=== PATIENT | male | born 1970 | race Hispanic/Latino ===

== ENCOUNTER → 2023-05-11 08:54 | Outpatient (REF) | payer OTHER, SELFPAY ==
[2023-05-11 11:49] LABS: Glycohemoglobin (HgbA1c) 7.5 % (4.0-5.6)
== END ==
LOC: REG 08:54
PROVIDERS: ATTENDING PHYSICIAN Internal Medicine
DX: E11.9 Type 2 diabetes mellitus without complications (principal)
CPT/HCPCS: 36415; 83036

== ENCOUNTER → 2023-12-21 09:20 | Outpatient (REF) | payer OTHER, SELFPAY ==
[2023-12-21 10:41] LABS: Glycohemoglobin (HgbA1c) 7.6 % (4.0-5.6)
== END ==
LOC: CLINIC 09:20
PROVIDERS: ATTENDING PHYSICIAN Internal Medicine; FAMILY PHYSICIAN Nurse Practitioner Adult Health
DX: E11.9 Type 2 diabetes mellitus without complications (principal)
CPT/HCPCS: 36415; 83036

== ENCOUNTER → 2024-04-02 08:01 | Outpatient (REF) | payer OTHER, SELFPAY ==
[2024-04-02 09:13] LABS: % Basophils 0.6 % (0-2); % Eosinophils 4.5 % (0-6); % Immature Granulocytes 0.4 % (0-0.5); % Lymphocytes 35.8 % (20.5-51.1); % Monocytes 7.5 % (1.7-9.3); % Neutrophils 51.2 % (42.2-75.2); Absolute Basophils 0.1 10^3/uL (0-0.2); Absolute Eosinophils 0.4 10^3/uL (0-0.7); Absolute Lymphocytes 3.4 10^3/uL (1.2-3.4); Absolute Monocytes 0.7 10^3/uL (0.1-0.6); Absolute Neutrophils 4.8 10^3/uL (1.4-6.5); Hemoglobin 16.7 g/dL (13.0-18.0); Mean Corp Hgb Conc. 35.5 g/dL (33.0-37.0); Mean Corpuscular Volume 87.4 fL (80.0-94.0); Mean Platelet Volume 10.4 fL (7.4-10.4); Nucleated Red Blood Cells % 0 % (-); Platelet Count 227 10^3/uL (130-400); Red Blood Cell Count 5.38 10^6/uL (4.70-6.10); Red Cell Dist. Width 12.3 % (11.5-14.5); Reticulocyte Count 1.4 % (0.4-2.8); White Blood Cell Count 9.4 10^3/uL (4.8-10.8)
[2024-04-02 09:16] LABS: Urine Albumin 2+ (Neg - Trace); Urine Bilirubin Negative (Negative); Urine Character Clear (Clear); Urine Color Yellow; Urine Glucose 2+ (Negative); Urine Ketone Negative (Negative); Urine Leukocyte Negative (Negative); Urine Nitrite Negative (Negative); Urine Occult Blood Negative (Negative); Urine Urobilinogen Negative (Neg - 1+)
[2024-04-02 09:45] LABS: ALT (SGPT) 50 U/L (0-50); AST (SGOT) 36 U/L (17-59); Albumin 5.2 g/dl (3.5-5.0); Alkaline Phosphatase 102 U/L (38-126); Blood Urea Nitrogen 14 mg/dl (9-20); Calcium 9.2 mg/dl (8.4-10.2); Carbon Dioxide 22 mmol/L (22-30); Chloride 102 mmol/L (98-107); Glucose 190 mg/dl (70-99); HDL Cholesterol 33 mg/dl; LDL Cholesterol, Calculated 91 mg/dl; Potassium 4.4 mmol/L (3.5-5.1); Sodium 139 mmol/L (135-145); Total Bilirubin 0.6 mg/dl (0.2-1.3); Total Cholesterol 164 mg/dl (50-199); Total Protein 8.4 g/dl (6.3-8.2); Triglyceride 200 mg/dl (10-149); Very Low Density Lipoprotein 40 mg/dl (0-30); eGFR > 60.00
[2024-04-02 10:06] LABS: PSA, Total - Screen 0.71 ng/ml (0.0-4.0)
[2024-04-02 10:11] LABS: Urine Mucus Few; Urine Squamous Cell 0-2 /LPF (Few)
[2024-04-02 10:12] LABS: Urine Red Blood Cell 0-2 /HPF (0-2); Urine White Cell 0-2 /HPF (0-5)
[2024-04-02 10:15] LABS: Microalbumin, Random Urine 15.8 mg/dl (0.6-1.7); Microalbumin/creatinine Ratio 96.2 mg/g
[2024-04-02 12:50] LABS: Glycohemoglobin (HgbA1c) 10.5 % (4.0-5.6)
== END ==
LOC: CLINIC 08:01
PROVIDERS: ATTENDING PHYSICIAN Internal Medicine
DX: E11.9 Type 2 diabetes mellitus without complications (principal)
CPT/HCPCS: 36415; 80053; 80061; 81003; 81015; 82043; 82570; 83036; 85025; 85045; G0103

== ENCOUNTER 2024-10-09 17:18 | Emergency (ER) | payer OTHER, SELFPAY ==
[2024-10-09 17:24] VITALS: BP 100/62
[2024-10-09 17:41] LABS: Hematocrit 36.0 % (39.0-52.0); Hemoglobin 12.2 g/dL (13.0-18.0); Mean Corp Hgb Conc. 33.9 g/dL (33.0-37.0); Mean Corpuscular Volume 89.8 fL (80.0-94.0); Nucleated Red Blood Cells % 0 % (-); Platelet Count 208 10^3/uL (130-400); Red Cell Dist. Width 13.5 % (11.5-14.5)
[2024-10-09 17:51] LABS: APTT 34.7 Sec (23.4-35.0)
[2024-10-09 18:04] LABS: ALT (SGPT) 14 U/L (0-50); AST (SGOT) 18 U/L (17-59); Albumin 4.6 g/dl (3.5-5.0); Alkaline Phosphatase 73 U/L (38-126); Blood Urea Nitrogen 30 mg/dl (9-20); Calcium 10.1 mg/dl (8.4-10.2); Carbon Dioxide 17 mmol/L (22-30); Chloride 107 mmol/L (98-107); Glucose 93 mg/dl (70-99); Potassium 5.0 mmol/L (3.5-5.1); Sodium 136 mmol/L (135-145); Total Protein 8.0 g/dl (6.3-8.2); eGFR > 60.00
[2024-10-09 18:05] LABS: Troponin I < 0.012 ng/ml
--- NOTE | 2024-10-09 18:27 | ED.GENMED ---
History of Present Illness
General
Chief Complaint: Weakness
Source: patient
Exam Limitations: none
Time Seen by Provider: 10/09/24 17:50
Nursing documentation reviewed up to this point in time: agreed with
History of Present Illness
History of Present Illness:
Patient to ED iwth complaint of generalized weaknss, BLE pain. He was admitted to a hospital in [place] while on vacation. Diagnosed with Legonella pneumonia. Intubated. He was discharged from the hospital on Thursday, returned home . Brought
to ED by family for eval of weaknss. Denies fever/chills. No SOB, cp/pressure, cough.
Past History
Past History
ED Past Medical History: HTN, Hypercholesterolemia and NIDDM (diet controlled)
ED Past Surgical History: None
Social History
Tobacco: Smoker (1 ppd)
Alcohol: None
Personal:
Living: with family
Employment: Employed
Family History
Family History: Negative CAD
Review of Systems
Review of Systems
Allergies reviewed?: Yes
All Other Systems: ROS reviewed and negative except as documented in HPI and ROS
Constitutional: Reports fatigue
EENT: Reports no symptoms
Respiratory: Reports no symptoms
Cardiac: Reports no symptoms
ABD/GI: Reports no symptoms
: Reports no symptoms
Musculoskeletal: Reports other (Bilateral lower leg pain)
Skin: Reports no symptoms
Neurological: Reports weakness
Psychiatric: Reports no symptoms
Phy Exam
General Physical Exam
General Presentation: mild distress
General age: appears stated age
General Skin: warm and dry
General Habitus: normal
General Mental: alert
General Hydration: appears well hydrated
Cardiovascular Exam
Cardiovascular Exam: regular rate/rhythm and no edema
Pulmonary Exam
Pulmonary Exam: lungs clear, no respiratory distress, no rales, chest non tender, no crackles, no rhonchi, no stridor, no wheezing and no cough
Gastrointestinal Exam
Gastrointestinal Exam: non tender and soft
Neurological Exam
Neurological Exam: alert, oriented x3, CN II-XII intact, no motor deficits, no sensory deficits and speech normal
Musculoskeletal Exam
Musculoskeletal Exam: full ROM and neuro vasc intact
Skin Exam
Skin Exam: normal color, warm/dry and no rash
Psychiatric Exam
Psychiatric Exam: normal mood/affect
Course
Orders/Labs/Results
Orders:
Orders
10/09/24 17:28
CR Chest - 2 Views Urgent
Comment:
Reason For Exam: weakness
10/09/24 17:29
ECG [Electrocardiogram (*1)] Urgent
Reason for Study: Fatigue / Weakness
EKG- Treatment ONCE
10/09/24 17:35
Complete Blood Count/With Diff Urgent
Comprehensive Metabolic Panel Urgent
NT-proBNP Urgent
PTT Urgent
Troponin I Urgent
10/09/24 18:26
US Periph Venous LOWER Ext Jarocho Urgent
Comment:
Reason For Exam: bilateral lower leg pain, s/p immobilization
Abnormal Lab Results
10/09/24
17:35
RBC 4.01 L 10^6/uL
(4.70-6.10)
Hgb 12.2 L g/dL
(13.0-18.0)
Hct 36.0 L %
(39.0-52.0)
Absolute Monos (auto) 0.7 H 10^3/uL
(0.1-0.6)
Monocytes % 9.9 H %
(1.7-9.3)
Carbon Dioxide 17 L mmol/L
(22-30)
BUN 30 H mg/dl
(9-20)
10/09/24 17:35
10/09/24 17:35
Vital Signs
Initial and Last Documented VS:
Initial Vital Signs
Temp Pulse Resp BP Pulse Ox
98.6 F 94 20 100/62 99
10/09/24 17:24 10/09/24 17:24 10/09/24 17:24 10/09/24 17:24 10/09/24 17:24
Last Documented Vital Signs
Temp Pulse Resp BP Pulse Ox
98.6 F 88 21 127/63 98
10/09/24 17:24 10/09/24 19:00 10/09/24 19:00 10/09/24 19:00 10/09/24 19:00
*Radiology
Radiology exam reviewed: radiology read reviewed
*Pulse Oximetry
SaO2: 99
Oxygen Mode of Delivery: Room air
Patient hypoxic: no
*Critical Care Note
Total Time (30-74mins, 75-104mins- exclusive of procedures): Not Applicable
Update Note
Update Note:
Patient to ED with report of weakness and pain in legs. Recently hospitalized in [place] for legionella pneumonia. Family reports he complained of leg pain while inpatient. He was placed on gabapentin for this. US neg for DVT. BLE neurovasc
intact. Labs reviewed, no concerning findings. VSS, he remains afebrile. CXR NAD. Discussed findings with patient and family. Will discharge home and he will follow up with PCP this week.
ED Attending Note
-
Portions of this chart may have been created with voice recognition software.� Occasional wrong word or��sound alike� substitutions may have occurred due to the inherent limitations of voice recognition software.
Discharge Plan
Departure
Patient Disposition: Home (Routine Discharge)
Date of Disposition: 10/09/24
Time of Disposition: 20:08
Patient with high blood pressure during this ER visit?: No
Condition: Good
Covid-19: Not Applicable
Discharge Problem:
Weakness
Instructions: Generalized Weakness (DC)
Prescriptions:
No Action
Amlodipino 5 mg tablet
10 mg PO DAILY
Patient Comments:
drug in packaging from [place], 5mg amlodipine, no pharmacy label
losartan 50 mg Tablet
50 mg PO BID
Patient Comments:
drug in packaging from [place], no pharmacy label
Rixtal Itraconazol 100 mg capsule
200 mg PO BID
Patient Comments:
drug in packaging from [place], Itraconazole 100mg, no pharmacy label
Wermy 300 mg tablet
600 mg PO QPM
Patient Comments:
drug in packaging from [place], 300mg gabapentin, no pharmacy label
Januvia 100 mg Tablet
100 mg PO DAILY
Patient Comments:
family showed me a photo of a bottle of 100mg Januvia, no pharmacy label
metformin 1,000 mg Tablet
1,000 mg PO BID
Referrals:
[facility] [place] [Other] - Tomorrow
Interventions
Interventions:
*Risk Screen - Suicide Last Done: 10/09/24 18:34
*General Assessment Last Done: 10/09/24 17:24
*Neglect/Abuse Screening Last Done: 10/09/24 18:34
*ED- Fall Risk Assessment Last Done: 10/09/24 18:34
*ED COVID-19 Vaccine History Last Done: 10/09/24 18:34
*Nursing Disposition Last Done: 10/09/24 20:18
ED- Cardiac Assessment Last Done: 10/09/24 18:34
ED- Neurological Assessment Last Done: 10/09/24 20:17
ED- Pulmonary Assessment Last Done: 10/09/24 20:17
Discharge Date and Time
Discharge Date/Time: 10/09/24 20:18
Print Language: WELSH
[2024-10-09 18:33] VITALS: BMI 24.8
[2024-10-09 19:00] VITALS: BP 127/63
--- NOTE | 2024-10-09 19:14 | PHANOTE ---
med rec tech: pt had bottles from [place], none of them had labels, only gynecologist packaging, directions were hand written inside the packages. Only med that was in pharmacy packaging with a label was Metformin, did not have Januvia bottle, only
showed me a picture of a Januvia bottle which had no pharmacy label
== END 2024-10-09 20:18 | disposition home or self-care (01) ==
LOC: EMR 17:18
PROVIDERS: EMERGENCY PHYSICIAN Emergency Medicine
DX: R53.1 Weakness (principal); E11.9 Type 2 diabetes mellitus without complications; I10 Essential (primary) hypertension; E78.00 Pure hypercholesterolemia, unspecified; F17.200 Nicotine dependence, unspecified, uncomplicated; Z79.84 Long term (current) use of oral hypoglycemic drugs
CPT/HCPCS: 99284; 71046; 80053; 83880; 84484; 85025; 85730; 93005; 93970

== ENCOUNTER → 2024-10-18 08:27 | Outpatient (REF) | payer OTHER, SELFPAY ==
[2024-10-18 10:24] LABS: Glycohemoglobin (HgbA1c) 6.6 % (4.0-5.6)
== END ==
LOC: CLINIC 08:27
PROVIDERS: ATTENDING PHYSICIAN Internal Medicine
DX: E11.9 Type 2 diabetes mellitus without complications (principal)
CPT/HCPCS: 36415; 83036

== ENCOUNTER → 2024-11-29 08:27 | Outpatient (REF) | payer OTHER, SELFPAY ==
[2024-11-29 09:57] LABS: HDL Cholesterol 39 mg/dl; LDL Cholesterol, Calculated 130 mg/dl; Very Low Density Lipoprotein 31 mg/dl (0-30)
[2024-11-29 10:19] LABS: Glycohemoglobin (HgbA1c) 6.0 % (4.0-5.6)
== END ==
LOC: CLINIC 08:27
PROVIDERS: ATTENDING PHYSICIAN Internal Medicine
DX: E11.9 Type 2 diabetes mellitus without complications (principal)
CPT/HCPCS: 36415; 80061; 83036

== ENCOUNTER 2024-12-29 17:00 | Outpatient (RCR) | payer OTHER, SELFPAY | END 2024-12-29 23:59 | disposition home or self-care (01) | LOC: RPT 17:00 | PROVIDERS: ATTENDING PHYSICIAN Nurse Practitioner Adult Health | DX: A48.1 Legionnaires' disease (principal); Z73.6 Limitation of activities due to disability; M62.81 Muscle weakness (generalized); R20.0 Anesthesia of skin; R20.2 Paresthesia of skin; M79.672 Pain in left foot; M79.671 Pain in right foot | CPT/HCPCS: 97110; 97112; 97116; 97162; 97530 ==

== ENCOUNTER 2025-01-24 11:49 | Outpatient (RCR) | payer OTHER, SELFPAY | END 2025-01-24 23:59 | disposition home or self-care (01) | LOC: RPT 11:49 | PROVIDERS: ATTENDING PHYSICIAN Nurse Practitioner Adult Health | DX: A48.1 Legionnaires' disease (principal); M62.81 Muscle weakness (generalized) (principal); Z73.6 Limitation of activities due to disability; R20.0 Anesthesia of skin; R20.2 Paresthesia of skin; M79.672 Pain in left foot; M79.671 Pain in right foot | CPT/HCPCS: 97110; 97112; 97530 ==

== ENCOUNTER 2025-02-21 17:59 | Outpatient (RCR) | payer OTHER, SELFPAY | END 2025-02-21 23:59 | disposition home or self-care (01) | LOC: RPT 17:59 | PROVIDERS: ATTENDING PHYSICIAN Nurse Practitioner Adult Health | DX: M62.81 Muscle weakness (generalized) (principal); A48.1 Legionnaires' disease; Z73.6 Limitation of activities due to disability; R20.0 Anesthesia of skin; R20.2 Paresthesia of skin; M79.672 Pain in left foot; M79.671 Pain in right foot | CPT/HCPCS: 97110; 97112; 97530 ==